=== PATIENT | male | born 1960 | race Caucasian/White ===

== ENCOUNTER → 2017-02-17 | Outpatient (CLI) | payer OTHER ==
[~2017-02-17] MED LIST: SKELAXIN PO; VICODIN 5/500 T1 TAB PO
--- NOTE | ~2017-02-17 | CR126 ---
[facility]. [facility] A Service [facility] RADIOLOGY TEXT RESULTS PATIENT: JED CASTILLO LOCATION: [facility] : 56 UNIT #: [id number] AGE: [address]: Oanh Soto SEX: M ORDER DR: [id number] [address] [address] [id number] O MR#: [id number] Acc #: [id number] NAME: JED CASTILLO : 1960 SEX: M STUDY DATE/TIME: 02/17/2017 13:59 UNIT: [facility] ROOM: STUDY DESCRIPTION: CR Foot Complete Min 3 View Lt Attending Physician: Oanh Soto A.P.R.N. Referring Physician: Oanh Soto A.P.R.N. Ordering Physician: Oanh Soto A.P.R.N. Primary Care Physician: Oanh Soto A.P.R.N. MEDICAL IMAGING REPORT This report is preliminary unless electronic signature is present. EXAM Left foot HISTORY Left foot pain after jamming foot in yard a couple of months ago. TECHNIQUE Three views of the left foot were obtained. FINDINGS The bones are normal. There is no fracture visible. Bone density appears slightly diminished. IMPRESSION There are subtle areas of what appear to be decreased bone density throughout the foot suggesting overall decreased bone density. No fracture is visible. Dictated by... Reyes Barrett M.D. THIS IS AN ELECTRONICALLY VERIFIED REPORT Reyes Barrett M.D. at 02/18/2017 10:40 PM FEL/pcl TD: 02/17/2017 20:18 JOB #: [id number] MEDICAL IMAGING REPORT [facility] A Service [facility] RADIOLOGY TEXT RESULTS PATIENT: JED CASTILLO LOCATION: [facility] : 56 UNIT #: [id number] AGE: [address]: Oanh Soto SEX: M ORDER DR: Page 1 of 1
== END | disposition home or self-care (01) ==
LOC: SRAD 13:42
DX: M79.672 Pain in left foot (principal); R93.7 Abnormal findings on diagnostic imaging of other parts of musculoskeletal system
CPT/HCPCS: 73630

== ENCOUNTER → 2017-03-17 | Outpatient (CLI) | payer OTHER ==
--- NOTE | ~2017-03-17 | BD1 ---
[facility] A Service of [facility] [place] RADIOLOGY TEXT RESULTS PATIENT: JED CASTILLO LOCATION: [facility] : 56 UNIT #: [id number] AGE: [address]: Oanh Soto SEX: M ORDER DR: [id number] [place] [id number] O MR#: [id number] Acc #: [id number] NAME: JED CASTILLO : 1960 SEX: M STUDY DATE/TIME: 03/17/2017 9:46 UNIT: SRAD ROOM: STUDY DESCRIPTION: Dexa Bone Dens 1+ Site Attending Physician: Oanh Soto A.P.R.N. Referring Physician: Oanh Soto A.P.R.N. Ordering Physician: Oanh Soto A.P.R.N. Primary Care Physician: Oanh Soto A.P.R.N. MEDICAL IMAGING REPORT This report is preliminary unless electronic signature is present. EXAM DXA scan 03/17/2017 HISTORY Decreased bone density on left foot radiograph 02/17/2017. Hypertension with blood pressure medication for 6 years. Smoking history for 40 years. FINDINGS Bone mineral density in the lumbar spine from L1-L4 is 1.163 g/cm2 which is 0.5 standard deviations below the mean when compared to the young adult reference population which is within the range of normal. This is 0.6 standard deviations below the mean when compared to the age-matched population. Bone mineral density in the left femoral neck was 0.864 g/cm2 which is 1.6 standard deviations below the mean when compared to the young adult reference population which is characteristic of osteopenia. This is 1 standard deviation below the mean when compared to the age-matched population. Bone mineral density in the right femoral neck was 0.934 g/cm2 which is 1 standard deviations below the mean when compared to the young adult reference population which is characteristic of osteopenia. This is 0.5 standard deviations below the mean when compared to the age-matched population. IMPRESSION Bone mineral density in the lumbar spine within the range of normal and within the hips bilaterally characteristic of osteopenia. Dictated by... Juan Diego Hughes M.D. THIS IS AN ELECTRONICALLY VERIFIED REPORT [facility] A Service of [facility] [place] RADIOLOGY TEXT RESULTS PATIENT: JED CASTILLO LOCATION: [facility] : 56 UNIT #: [id number] AGE: [address]: Oanh Soto SEX: M ORDER DR: Juan Diego Hughes M.D. at 03/17/2017 4:30 PM KIRSTEN/mihir TD: 03/17/2017 12:34 JOB #: [id number] MEDICAL IMAGING REPORT Page 1 of 1
== END | disposition home or self-care (01) ==
LOC: SRAD 09:22
DX: M85.80 Other specified disorders of bone density and structure, unspecified site (principal)
CPT/HCPCS: 77080